=== PATIENT | male | born 1940 | race Caucasian/White ===

== ENCOUNTER 2017-11-02 18:16 | Emergency (ER) | payer OTHER ==
[~2017-11-02] VITALS: Ht 175.3 cm; Wt 66.7 kg
[2017-11-02] MEDS ORDERED: COZAAR100 MG (18:35)
[2017-11-02] MEDS ORDERED: ARICEPT10 MG (18:35)
== END 2017-11-02 22:48 | disposition home or self-care (01) ==
LOC: ER 18:16
DX: R55 Syncope and collapse (principal)

== ENCOUNTER 2019-05-09 06:49 | Inpatient (IN) | payer OTHER ==
[~2019-05-09] VITALS: Ht 175.3 cm; Wt 78.0 kg
[~2019-05-09 06:49] MED LIST: ARICEPT10 MG; COZAAR100 MG
[2019-05-12] MEDS ORDERED: ATACAND32 MG PO (15:44)
[2019-05-12] MEDS ORDERED: MEMANTINE HCL10 MG PO (15:44)
[2019-05-21] MEDS ORDERED: CARVEDILOL12.5 MG PO (18:25)
[2019-05-21] MEDS ORDERED: CLOPIDOGREL BIS75 MG PO (18:25)
[2019-05-21] MEDS ORDERED: AMIODARONE HCL200 MG PO (18:25)
[2019-05-21] MEDS ORDERED: ASA-EC81 MG PO (18:26)
[2019-05-21] MEDS ORDERED: SIMVASTATIN20 MG PO (18:26)
[2019-05-21] MEDS ORDERED: FUROSEMIDE40 MG PO (18:26)
[2019-05-21] MEDS ORDERED: LISINOPRIL10 MG PO (18:26)
== END 2019-05-21 18:57 | disposition home or self-care (01) | DRG 280 ==
LOC: ER 06:49 → ICU-2 16:41 → ICU 05-12 22:44 → MEDJ 05-16 14:33
PROVIDERS: ADMIT Internal Medicine
PROC: B246ZZZ Ultrasonography of Right and Left Heart (ICD-10-PCS; principal; 2019-05-09)
PROC: BB24ZZZ Computerized Tomography (CT Scan) of Bilateral Lungs (ICD-10-PCS; 2019-05-09)
PROC: 4A033R1 Measurement of Arterial Saturation, Peripheral, Percutaneous Approach (ICD-10-PCS; 2019-05-09)
PROC: 3E0F7GC Introduction of Other Therapeutic Substance into Respiratory Tract, Via Natural or Artificial Opening (ICD-10-PCS; 2019-05-09)
PROC: 4A12X4Z Monitoring of Cardiac Electrical Activity, External Approach (ICD-10-PCS; 2019-05-09)
PROC: BW28ZZZ Computerized Tomography (CT Scan) of Head (ICD-10-PCS; 2019-05-13)
PROC: B345ZZZ Ultrasonography of Bilateral Common Carotid Arteries (ICD-10-PCS; 2019-05-13)
PROC: C21G1ZZ Planar Nuclear Medicine Imaging of Myocardium using Technetium 99m (Tc-99m) (ICD-10-PCS; 2019-05-19)
DX: I11.0 Hypertensive heart disease with heart failure (principal); J80 Acute respiratory distress syndrome; I21.4 Non-ST elevation (NSTEMI) myocardial infarction; F05 Delirium due to known physiological condition; N17.8 Other acute kidney failure; E87.0 Hyperosmolality and hypernatremia; I50.23 Acute on chronic systolic (congestive) heart failure; I13.0 Hypertensive heart and chronic kidney disease with heart failure and stage 1 through stage 4 chronic kidney disease, or unspecified chronic kidney disease; I48.0 Paroxysmal atrial fibrillation; I77.1 Stricture of artery; I08.3 Combined rheumatic disorders of mitral, aortic and tricuspid valves; N18.3 Chronic kidney disease, stage 3 (moderate); E87.6 Hypokalemia; E86.0 Dehydration; R31.0 Gross hematuria; G30.0 Alzheimer's disease with early onset; F02.80 Dementia in other diseases classified elsewhere, unspecified severity, without behavioral disturbance, psychotic disturbance, mood disturbance, and anxiety; Z79.01 Long term (current) use of anticoagulants

== ENCOUNTER 2019-07-17 00:10 | Inpatient (IN) | payer OTHER ==
[~2019-07-17] VITALS: Ht 170.2 cm; Wt 71.2 kg
[~2019-07-17 00:10] MED LIST changes: +AMIODARONE HCL200 MG PO; +ASA-EC81 MG PO; +ATACAND32 MG PO; +CARVEDILOL12.5 MG PO; +CLOPIDOGREL BIS75 MG PO; +FUROSEMIDE40 MG PO; +LISINOPRIL10 MG PO; +MEMANTINE HCL10 MG PO; +SIMVASTATIN20 MG PO
--- NOTE | 2019-07-17 00:19 | NUR ---
SE RECIBE PACIENTE ALERTA Y ORIENTADO EN PERSONA Y LUGAR AL MOMENTO EL PACIENTE REFIERE FALTA DE AIER DESDE HOY.
--- NOTE | 2019-07-17 01:48 | NUR ---
SE ORIENTA PACIENTE Y KEMAL SOBRE TRATAMIENTO MEDICO EL CUAL REFIEREN ENTENDER, SE REALIZA MUESTRA DE CAM DE FORMA ASEPTICA Y SE ADMINISTRA MEDICAMENTO GRANT ORDEN MEDICA. SE COLOCA EGAN A GRAVEDAD DRENANDO ORINA COLOR AMARILLA BEATRIZ. SE COLOCA TRIDIL 50MG/250ML A 3ML/HR. SE COLOCA EN CAMA CON BARANDAS ELEVADAS Y CABECERA A 45 GRADOS, TIENE MONITOR CARDIACO CON OXIMETRIA DE PULSO. SE COLOCA CANULA NASAL A 3 LITROS. PACIENT REFIERE QUE ESTA RESPIRANDO MEJOR. SE MANTIENE BAJO OBSERVACION POR CAMBIOS.
--- NOTE | 2019-07-17 07:30 | NUR ---
SE RECIBE PTE MASCULINO DE 86 YRS ALERTA CONCIENTE Y TRANQUILO EN CAMA CON BARANDAS ELEVADA EN LA UNIDAD DE CRITICO DE LA MARI[place] DE EMERGENCIA .PTE CONECTADO A MONITOR CARDIACO Y OXIMENTRIA. SE OBSERVA PTE CON FOLIE CATHETE CON UN OUPUT DE COLOR AMARILLO HAYLIE. SE MANTIENE BAJANDO POR IVF TRIDIL 50/250 A 5 ML HR Y CONSULTADO CON EL LV VENEGAS Y EL NUHA VENEGAS. SE LE OANH S/V LA CUAL SE DOCUMENTA. SE MAMNTENE
--- NOTE | 2019-07-17 07:41 | NUR ---
SE MANTIENE KENRICK DE DOLOR AL MOENTO Y DESCANZANDO. SE OBSERVA POR CAMBIOS EN STARK CONDICION.
--- NOTE | 2019-07-17 09:10 | NUR ---
SE OBSERVA PTE MOLESTO ,LEVEMENTE DESORIENTADO EN TIEMPO Y LUGAR. PTE REFIERE QUE SE LE QUIETE EL FOLIE QUE LE DUELE . SE LE DA ORIENTACION Y SE LE DICE QUE SE VA A LASTIMAR SI SE LO TOCA O SE LE KAROLINA. SE OBSERVA PTE MOLESTO Y SE LO KAROLINA WIL SACANDOSELO Y LASTIMANDOCE EL AREA DEL PENE BOTANDO ANIRUDH SANCRE . SE LE DA LOCARE CARE Y SE LE WALTER ASEO PERSONAL ,CAMBIANDOLE ROPA DE CAMA . SE LE NOTIFICA A EL DR,OROPEZA MEDICO EN TURNO QUE LO EXAMINA. LUEGO EL PTE COMEINZA ARECORDAR DONDE ESTA Y LO QUE LE PASO. DESAYUNA SIN PROBLEMA ALGUNO Y SE LE MANTIENE COMODO EN LA CAMA . SE LE OANH S/V Y SE MANTIENE ESTABLE.PTE VERBALIZA NO TENER DOLOR EN EL AREA LASTIMADA. SE MANTIENE BAJO OBSERVACION.
[2019-07-19] MEDS ORDERED: SIMVASTATIN20 MG PO (12:13)
[2019-07-19] MEDS ORDERED: CARdura 2MG TABLET PO (12:13)
[2019-07-19] MEDS ORDERED: ATACAND32 MG PO (12:13)
[2019-07-19] MEDS ORDERED: CARVEDILOL12.5 MG PO (12:13)
[2019-07-19] MEDS ORDERED: NAMENDA10 MG PO (12:13)
[2019-07-19] MEDS ORDERED: AMIODARONE HCL200 MG PO (12:13)
[2019-07-19] MEDS ORDERED: ISOSORBIDE MONO60 MG PO (12:13)
[2019-07-19] MEDS ORDERED: CLOPIDOGREL BIS75 MG PO (12:13)
== END 2019-07-19 12:21 | disposition home or self-care (01) | DRG 280 ==
LOC: ER 00:10 → SEC-K 12:26 → MEDJ 12:26
PROVIDERS: ADMIT Internal Medicine
PROC: 4A033R1 Measurement of Arterial Saturation, Peripheral, Percutaneous Approach (ICD-10-PCS; principal; 2019-07-17)
PROC: B246ZZZ Ultrasonography of Right and Left Heart (ICD-10-PCS; 2019-07-17)
PROC: 3E0F7GC Introduction of Other Therapeutic Substance into Respiratory Tract, Via Natural or Artificial Opening (ICD-10-PCS; 2019-07-17)
PROC: 4A12X4Z Monitoring of Cardiac Electrical Activity, External Approach (ICD-10-PCS; 2019-07-17)
DX: I11.0 Hypertensive heart disease with heart failure (principal); I21.4 Non-ST elevation (NSTEMI) myocardial infarction; J16.8 Pneumonia due to other specified infectious organisms; I47.2 Ventricular tachycardia; N17.8 Other acute kidney failure; I34.0 Nonrheumatic mitral (valve) insufficiency; I35.0 Nonrheumatic aortic (valve) stenosis; G30.8 Other Alzheimer's disease; F02.80 Dementia in other diseases classified elsewhere, unspecified severity, without behavioral disturbance, psychotic disturbance, mood disturbance, and anxiety; I48.0 Paroxysmal atrial fibrillation; I50.23 Acute on chronic systolic (congestive) heart failure; N18.9 Chronic kidney disease, unspecified; R09.02 Hypoxemia

== ENCOUNTER 2019-07-20 07:36 | Emergency (ER) | payer OTHER ==
[~2019-07-20] VITALS: Ht 182.9 cm; Wt 82.1 kg
[~2019-07-20 07:36] MED LIST changes: +CARdura 2MG TABLET PO; +ISOSORBIDE MONO60 MG PO; +NAMENDA10 MG PO
== END 2019-07-20 13:25 | disposition home or self-care (01) ==
LOC: ER 07:36
DX: R31.0 Gross hematuria (principal)

== ENCOUNTER 2020-02-10 10:55 | Emergency (ER) | payer OTHER ==
[~2020-02-10] VITALS: Ht 167.6 cm; Wt 72.6 kg
[2020-02-10] MEDS ORDERED: DOXAZOSIN MESYLA2 MG (11:17)
== END 2020-02-11 21:04 | disposition home or self-care (01) ==
LOC: ER 10:55
DX: I11.0 Hypertensive heart disease with heart failure (principal); I50.9 Heart failure, unspecified; Z20.828 Contact with and (suspected) exposure to other viral communicable diseases

== ENCOUNTER 2020-09-26 12:10 | Inpatient (IN) | payer OTHER ==
[~2020-09-26] VITALS: Ht 175.3 cm; Wt 89.4 kg
[~2020-09-26 12:10] MED LIST changes: +DOXAZOSIN MESYLA2 MG
[2020-09-26] MEDS ORDERED: NAMENDA XR1 EACH (12:19)
[2020-09-26] MEDS ORDERED: ISOSORBIDE MONO60 MG (12:19)
== END 2020-09-28 14:44 | disposition home or self-care (01) | DRG 281 ==
LOC: ER 12:10 → SEC-K 21:43
PROVIDERS: ADMIT Internal Medicine; ATTEND Internal Medicine
PROC: B24BZZZ Ultrasonography of Heart with Aorta (ICD-10-PCS; principal; 2020-09-26)
PROC: 4A033R1 Measurement of Arterial Saturation, Peripheral, Percutaneous Approach (ICD-10-PCS; 2020-09-26)
DX: I50.23 Acute on chronic systolic (congestive) heart failure (principal); I21.4 Non-ST elevation (NSTEMI) myocardial infarction; N17.8 Other acute kidney failure; K52.89 Other specified noninfective gastroenteritis and colitis; R10.9 Unspecified abdominal pain; I48.0 Paroxysmal atrial fibrillation; I95.89 Other hypotension; E03.8 Other specified hypothyroidism; G30.8 Other Alzheimer's disease; F02.80 Dementia in other diseases classified elsewhere, unspecified severity, without behavioral disturbance, psychotic disturbance, mood disturbance, and anxiety; Z20.822 Contact with and (suspected) exposure to COVID-19

== ENCOUNTER 2021-02-11 19:44 | Emergency (ER) | payer OTHER ==
[~2021-02-11] VITALS: Ht 175.3 cm; Wt 86.2 kg
[~2021-02-11 19:44] MED LIST changes: +ISOSORBIDE MONO60 MG; +NAMENDA XR1 EACH
== END 2021-02-11 23:59 | disposition home or self-care (01) ==
LOC: ER 19:44
DX: S01.02XA Laceration with foreign body of scalp, initial encounter (principal); W18.09XA Striking against other object with subsequent fall, initial encounter; Y93.89 Activity, other specified; Y92.018 Other place in single-family (private) house as the place of occurrence of the external cause; Y99.8 Other external cause status

== ENCOUNTER 2021-08-06 15:22 | Emergency (ER) | payer OTHER ==
[~2021-08-06] VITALS: Ht 175.3 cm; Wt 81.6 kg
[2021-08-06] MEDS ORDERED: TAMSULOSIN HCL0.4 MG PO (15:37)
[2021-08-06] MEDS ORDERED: MEMANTINE HCL10 MG PO (15:37)
[2021-08-06] MEDS ORDERED: LEVOTHYROXINE75 MCG PO (15:37)
[2021-08-06] MEDS ORDERED: CARVEDILOL12.5 M1 PO (15:38)
== END 2021-08-06 21:27 | disposition home or self-care (01) ==
LOC: ER 15:22
DX: R55 Syncope and collapse (principal); R11.10 Vomiting, unspecified; Z20.822 Contact with and (suspected) exposure to COVID-19